=== PATIENT | male | born 1965 | race Caucasian/White ===

== ENCOUNTER 2018-02-06 00:27 | Emergency (ER) | payer BC ==
[~2018-02-06] VITALS: Ht 172.7 cm; Wt 77.1 kg
[~2018-02-06 00:27] MED LIST: BENA20TA75 PO; HYDR25TA4 PO; METO200T3 PO
[2018-02-06 00:33] VITALS: BP_SYST 144
--- NOTE | 2018-02-06 00:38 | NUR ---
Pt placed to ER waiting room in stable condition.
--- NOTE | 2018-02-06 01:01 | NUR ---
Placed in room 05 . To gown for exam. Side rails up. Report given to RN.
--- NOTE | 2018-02-06 01:15 | NUR ---
ER at bedside examining patient.
--- NOTE | 2018-02-06 01:30 | NUR ---
Patient came in for R shoulder pain for the past 3 months but noticed that the pain got worse today. He says the pain gets worse with movement. Pt denies any trauma, weakness or any other complaints. Will cont to monitor.
[2018-02-06] MEDS ORDERED: HYDROcodone/ACETAMIN 7.5-325 MG TAB PO ONE (02:00)
[2018-02-06] MEDS ORDERED: INDOMETHACIN 25 MG CAPSULE(INDOCIN) PO ONE (02:00)
--- NOTE | 2018-02-06 02:09 | NUR ---
Pt was medicated hydrocodone and imdometacin PO per MD order. Pt tolerating well. Will cont. to monitor.
[2018-02-06 02:22] VITALS: BP_SYST 144
--- NOTE | 2018-02-06 02:22 | NUR ---
Patient given written and verbal discharge instructions and verbalizes understanding. ER MD Dr. Simmons discussed with patient the results and treatment provided. Patient in stable condition. ID arm band removed. Rx of Indocin and norco given. Patient educated on pain management and to follow up with PMD within 2-3 days. Pain Scale 0.10. Opportunity for questions provided and answered. Medication side effect fact sheet provided.
--- NOTE | 2018-02-07 12:07 | NUR ---
Dr Gray called from an urgent care asking about results from x ray and what medication was given in ER. Dr Gray states pt is in urgent care today.
== END 2018-02-06 02:22 | disposition home or self-care (01) ==
LOC: SED 00:27
DX: M75.51 Bursitis of right shoulder (principal); M70.11 Bursitis, right hand; I10 Essential (primary) hypertension; F17.210 Nicotine dependence, cigarettes, uncomplicated; Z79.899 Other long term (current) drug therapy
CPT/HCPCS: 73030; 99284